=== PATIENT | female | born 1950 | race Caucasian/White ===

== ENCOUNTER 2024-03-27 12:53 | Outpatient (REF) | payer MEDICARE, OTHER, SELFPAY ==
[2024-03-27 19:42] LABS: ALT 34 U/L (14-59); AST 27 U/L (15-37); Albumin 3.8 g/dL (3.4-5.0); Alkaline Phosphatase 89 U/L (46-116); BUN 24 mg/dL (7-18); Bilirubin, Total 0.68 mg/dL (0.2-1.0); CREATININE 2.2 mg/dL (0.55-1.02); Calcium 8.9 mg/dL (8.5-10.1); Chloride 103 mmol/L (98-107); Estimated GFR 22.95 (mL/min/1.73m2); Glucose 138 mg/dL (74-106); Potassium 4.3 mmol/L (3.5-5.1); Sodium 144 mmol/L (136-145); TSH (W/Ref FT4) 12.96 uIU/mL (0.36-3.74); Total Protein 7.6 g/dL (6.4-8.2)
[2024-03-27 19:50] LABS: Hemoglobin A1C 6.9 % (<5.7)
== END 2024-03-27 12:54 | disposition home or self-care (01) ==
LOC: NCHCN 12:53
PROVIDERS: Visit Provider Nurse Practitioner Family
DX: E11.9 Type 2 diabetes mellitus without complications (principal)
CPT/HCPCS: 80053; 83036; 84439; 84443

== ENCOUNTER 2024-04-04 15:06 | Outpatient (REF) | payer MEDICARE, OTHER, SELFPAY ==
[2024-04-04 20:27] LABS: Anion Gap 10.4 mmol/L (3-11); BUN 20 mg/dL (7-18); CO2 29.6 mmol/L (21.0-32.0); CREATININE 2.1 mg/dL (0.55-1.02); Calcium 9.8 mg/dL (8.5-10.1); Chloride 99 mmol/L (98-107); Estimated GFR 24.27 (mL/min/1.73m2); Glucose 194 mg/dL (74-106); Potassium 4.4 mmol/L (3.5-5.1); Sodium 139 mmol/L (136-145)
[2024-04-04 21:00] LABS: FREE T4 1.34 ng/dL (0.76-1.46)
== END 2024-04-04 15:07 | disposition home or self-care (01) ==
LOC: NCHCN 15:06
PROVIDERS: Visit Provider Nurse Practitioner Family
DX: E03.9 Hypothyroidism, unspecified (principal); R79.89 Other specified abnormal findings of blood chemistry
CPT/HCPCS: 80048; 84439; 84443

== ENCOUNTER 2024-06-21 09:54 | Outpatient (REF) | payer MEDICARE, OTHER, SELFPAY ==
[2024-06-21 19:46] LABS: TSH (W/Ref FT4) 1.62 uIU/mL (0.36-3.74)
== END 2024-06-21 09:55 | disposition home or self-care (01) ==
LOC: NCHCN 09:54
PROVIDERS: PCP Nurse Practitioner Family; Visit Provider Nurse Practitioner Family
DX: E03.9 Hypothyroidism, unspecified (principal)
CPT/HCPCS: 84443

== ENCOUNTER 2024-10-01 15:09 | Outpatient (REF) | payer MEDICARE, OTHER, SELFPAY ==
[2024-10-01 19:42] LABS: HGB 12.5 g/dL (11.2-15.7); MCH 29.4 pg (27.0-33.0); MCHC 31.3 % (32.0-36.0); MCV 94 fL (80-95); MPV 10.6 fL (8.0-11.0); Platelet Count 258 10^3/uL (130-400); RBC 4.25 10^6/uL (3.93-5.22); RDW-SD 44.6 fL; WBC 8.68 10^3/uL (4.4-10.8)
[2024-10-01 19:43] LABS: Bilirubin Negative (Negative); Blood Negative (Negative); Clarity Clear (Clear); Glucose Negative (Negative); Ketones Negative (Negative); Leukocyte Esterase Negative (Negative); Nitrite Negative (Negative); Urobilinogen 0.2 mg/dL (Up to 0.2)
[2024-10-01 20:11] LABS: Anion Gap 7.9 mmol/L (3-11); BUN 23 mg/dL (7-18); CO2 30.1 mmol/L (21.0-32.0); CREATININE 1.9 mg/dL (0.55-1.02); Calcium 9.2 mg/dL (8.5-10.1); Chloride 103 mmol/L (98-107); Estimated GFR 27.37 (mL/min/1.73m2); Glucose 145 mg/dL (74-106); Potassium 3.9 mmol/L (3.5-5.1); Sodium 141 mmol/L (136-145)
[2024-10-01 20:31] LABS: COMMENT (LAB VIEW ONLY) 117.96 mg/dL; Microalb ug/mg Crea 9.1 ug/mg Cr
== END 2024-10-01 15:10 | disposition home or self-care (01) ==
LOC: NCHCN 15:09
PROVIDERS: PCP Nurse Practitioner Family; Visit Provider Nurse Practitioner Family
DX: N18.4 Chronic kidney disease, stage 4 (severe) (principal)
CPT/HCPCS: 80048; 85027; 81003; 82043; 82570

== ENCOUNTER 2025-04-17 13:33 | Outpatient (REF) | payer MEDICARE, OTHER, SELFPAY ==
[2025-04-17 23:01] LABS: TSH (W/Ref FT4) 0.25 uIU/mL (0.36-3.74)
== END 2025-04-17 13:34 | disposition home or self-care (01) ==
LOC: NCHCN 13:33
PROVIDERS: PCP Nurse Practitioner Family; Visit Provider Nurse Practitioner Family
DX: E03.9 Hypothyroidism, unspecified (principal)
CPT/HCPCS: 84439; 84443

== ENCOUNTER 2025-06-19 13:58 | Outpatient (REF) | payer MEDICARE, OTHER, SELFPAY ==
[2025-06-19 20:38] LABS: TSH (W/Ref FT4) 0.30 uIU/mL (0.55-4.78)
== END 2025-06-19 13:59 | disposition home or self-care (01) ==
LOC: NCHCN 13:58
PROVIDERS: PCP Nurse Practitioner Family; Visit Provider Nurse Practitioner Family
DX: E03.9 Hypothyroidism, unspecified (principal)
CPT/HCPCS: 84439; 84443